=== PATIENT | female | born 1990 | race Caucasian/White ===

== ENCOUNTER 2016-05-02 13:03 | Emergency (ER) | payer OTHER ==
[~2016-05-02 13:03] MED LIST: ALBU1.25 IH; ALBU5SOL2 IH; BENZ100C PO; GUAI118L13 PO; HYDR115S2 PO; ONDA4TAB10 PO; SERT25TA PO; [UNRECOGNIZED DRUG - OTHER]
--- NOTE | 2016-05-02 13:47 | PHYS DOC ---
General Chief Complaint: ABDOMINAL PAIN Stated Complaint: ABDOM PAINS Time Seen by MD: 13:34 Source: patient Exam Limitations: no limitations Problems: History of Present Illness Initial Comments Pt is 26/F to ED c/o abdominal pain. Pt states for the past several weeks she's had generalized abdominal pain. No n /v/d, has had constipation in past but states she's having normal BMs. Pt states she saw her doctor for this recently diagnosed constipated recommended milk of magnesia. Pt was also seen recently at [place] for similar symptoms, on that day pt reports no labs/imaging she was diagnosed pancreatitis. Pt states she does not drink alcohol, no fever/chills/travel/bad food exposure. Sx described as moderate and achy/cramping, no exacerbating/relieving factors. LMP 3/7. Timing/Duration: other Severity: moderate Associated Symptoms: other Allergies: Coded Allergies: acetaminophen (Verified Allergy, Severe, Shortness of Air, 06/13/14) HIVES/RASH oxycodone (Verified Allergy, Severe, Shortness of Air, 06/13/14) HIVES/RASH Past Medical History Medical History: other (ectopic ) Surgical History: other (left salpingoophorectomy) LOAN ASSOCIATE History: ectopic Family History Significant Family History: no pertinent family hx Social History Smoker: cigarettes Alcohol: none Drugs: marijuana Review of Systems Constitutional: denies chills, denies fever, denies malaise Respiratory: denies cough, denies shortness of breath Cardiovascular: denies chest pain, denies palpitations Gastrointestinal: see HPI Genitourinary: denies dysuria, denies frequency, denies hematuria Musculoskeletal: denies back pain, denies joint swelling, denies neck pain Psychiatric/Neurological: denies headache, denies numbness, denies paresthesia Hematologic/Lymphatic: denies blood clots, denies easy bleeding, denies easy bruising Physical Exam General Appearance: WD/WN, no apparent distress Eyes: bilateral eye EOMI, bilateral eye PERRL, bilateral eye normal inspection Ear, Nose, Throat: hearing grossly normal, normal ENT inspection, normal pharynx Neck: non-tender, supple Respiratory: normal breath sounds, no respiratory distress Cardiovascular: normal peripheral pulses, regular rate, rhythm Gastrointestinal: soft (ND, BS normal, generalized TTP no r/g/mass) Rectal: deferred Back: no CVA tenderness, no vertebral tenderness Extremities: non-tender, normal inspection Neurologic/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 Supine and upright films of the abdomen were obtained. No prior plain film imaging of the abdomen is available. The lung bases are clear. There is no free air. The abdominal gas pattern is normal. Occasional calcifications are seen in the left pelvis compatible with phleboliths. IMPRESSION: No acute or significant finding seen in the abdomen on plain films DICTATED AND SIGNED BY: GAGAN HYATT MD DATE: 05/02/16 1425 CC: PCP,NO; VITOR PAINTER DO ~ Reassuring ED workup, pt feeling better after results back. Departure Time of Disposition: 14:47 Disposition: 01 HOME, SELF-CARE Diagnosis: abdominal pain NOS Condition: GOOD Patient Instructions: Abdominal Pain (Nonspecific) Additional Instructions: Diet/activity as tolerated. Rx: dicyclomine, simethicone Follow up with your doctor in 7-10 days for recheck and specialty referrals if indicated. Return to ED with new or changing symptoms. VITOR PAINTER DO May 02, 2016 13:47
[2016-05-02 13:59] LABS: BASO # 0.1 x10^3/uL (0.0-0.2); BASO % 1 % (0-3); EOS % 0 % (0-3); HEMATOCRIT 38.4 % (36.0-47.0); HEMOGLOBIN 12.4 g/dL (12.0-15.5); LYMPH # 2.1 x10^3/uL (1.0-4.8); LYMPH % 31 % (24-48); MEAN CORPUSCULAR HEMOGLOBIN 30 pg (25-35); MEAN CORPUSCULAR HGB CONC 32 g/dL (31-37); MEAN CORPUSCULAR VOLUME 93 fL (79-100); MONO # 0.5 x10^3/uL (0.0-1.1); MONO % 7 % (0-9); NEUT # 4.1 x10^3uL (1.8-7.7); NEUT % 60 % (31-73); PLATELET COUNT 191 x10^3/uL (140-400); RED BLOOD COUNT 4.15 x10^6/uL (3.50-5.40); RED CELL DISTRIBUTION WIDTH 13.2 % (11.5-14.5); WHITE BLOOD COUNT 6.9 x10^3/uL (4.0-11.0)
[2016-05-02 14:15] LABS: ALBUMIN 3.8 g/dL (3.4-5.0); CREATININE 0.8 mg/dL (0.6-1.0); GFR 87.4; TOTAL BILIRUBIN 0.5 mg/dL (0.2-1.0); TOTAL PROTEIN 7.6 g/dL (6.4-8.2)
[2016-05-02 14:20] VITALS: BP 126/72
--- NOTE | 2016-05-02 14:29 | RAD ---
Indication abdominal pain for one month. Supine and upright films of the abdomen were obtained. No prior plain film imaging of the abdomen is available. The lung bases are clear. There is no free air. The abdominal gas pattern is normal. Occasional calcifications are seen in the left pelvis compatible with phleboliths. IMPRESSION: No acute or significant finding seen in the abdomen on plain films
[2016-05-02] MEDS ORDERED: SIME80TA14 PO (14:46)
[2016-05-02] MEDS ORDERED: DICY20TA3 PO (14:46)
[2016-05-02 14:52] LABS: BILIRUBIN,URINE NEG (NEG); COLOR,URINE YELLOW
[2016-05-02 14:53] LABS: CLARITY,URINE CLEAR; GLUCOSE,URINE NEG (NEG); NITRITE,URINE NEG (NEG); UROBILINOGEN,URINE 2 mg/dL (0.2 mg/dL)
== END 2016-05-02 14:54 | disposition home or self-care (01) ==
LOC: ER 13:03
DX: R10.84 Generalized abdominal pain (principal); F17.210 Nicotine dependence, cigarettes, uncomplicated; F12.10 Cannabis abuse, uncomplicated; Z88.5 Allergy status to narcotic agent; Z88.8 Allergy status to other drugs, medicaments and biological substances; Z90.81 Acquired absence of spleen; Z90.721 Acquired absence of ovaries, unilateral
CPT/HCPCS: 36415; 74020; 80053; 81003; 81025; 83690; 85027; 99285-25

== ENCOUNTER 2016-06-06 09:09 | Emergency (ER) | payer OTHER ==
[~2016-06-06] VITALS: Ht 162.6 cm; Wt 75.7 kg
[~2016-06-06 09:09] MED LIST changes: +DICY20TA3 PO; +SIME80TA14 PO
[2016-06-06 09:15] VITALS: BP 130/82
--- NOTE | 2016-06-06 09:34 | ED.ADGEN ---
Past History Past Medical History: Depression, Diabetes Past Surgical History: No Surgical History Smoking: Cigarettes Alcohol Use: None Drug Use: Marijuana Adult General HPI HPI Patient is a 26-year-old woman, with a history of chlamydia and gonorrhea a year ago, bacterial vaginosis last month, and of urinary tract infections in the past, who presents the emergency department with a complaint of dysuria for the past 4 days, and concern for possible STI exposure. Patient states that she recently found out that her partner was not being monogamous, and she recently acquired a new partner. She states she is being monogamous currently, but does have concerns about possible exposure. She denies any abdominal pain, any nausea or vomiting, any fevers or chills, any flank pain or back pain. Patient states that she has burning with urination, and frequency and urgency. Occasionally noted yellow discharge in the vagina. She's been taking Azo at home for the past 3 days. Denies any other medications, or medical problems, any travel, surgery, or other complaints. Review of Systems Review of Systems Constitutional: Denies fever or chills [] Eyes: Denies change in visual acuity, redness, or eye pain [] HENT: Denies nasal congestion or sore throat [] Respiratory: Denies cough or shortness of breath [] Cardiovascular: No additional information not addressed in HPI [] GI: Denies abdominal pain, nausea, vomiting, bloody stools or diarrhea [] : Nice hematuria, complaining of dysuria. Musculoskeletal: Denies back pain or joint pain [] Integument: Denies rash or skin lesions [] Neurologic: Denies headache, focal weakness or sensory changes [] Endocrine: Denies polyuria or polydipsia [] Current Medications Current Medications Current Medications Medications (Trade) Dose Ordered Sig/Cesia Start Time Stop Time Status Last Admin Dose Admin Azithromycin (Zithromax) 1,000 mg 1X ONCE 06/06/16 10:00 06/06/16 10:01 DC 06/06/16 10:00 1,000 MG Ceftriaxone Sodium (Rocephin Im) 250 mg 1X ONCE 06/06/16 10:00 06/06/16 10:01 DC 06/06/16 10:00 250 MG Cephalexin HCl (Keflex) 500 mg 1X ONCE 06/06/16 11:00 06/06/16 11:01 Metronidazole (Flagyl) 500 mg 1X ONCE 06/06/16 11:00 06/06/16 11:01 Naproxen (Naprosyn) 500 mg 1X ONCE 06/06/16 11:00 06/06/16 11:01 Allergies Allergies Allergies Coded Allergies Type Severity Reaction Last Updated Verified acetaminophen Allergy Severe Shortness of Air 06/13/14 Yes oxycodone Allergy Severe Shortness of Air 06/13/14 Yes Physical Exam Physical Exam Constitutional: Well developed, well nourished, no acute distress, non-toxic appearance. [] HENT: Normocephalic, atraumatic, bilateral external ears normal, oropharynx moist, no oral exudates, nose normal. [] Eyes: PERRLA, EOMI, conjunctiva normal, no discharge. [] Neck: Normal range of motion, no tenderness, supple, no stridor. [] Cardiovascular:Heart rate regular rhythm, no murmur, S1, S2, no rubs or gallops. [] Lungs & Thorax: Bilateral breath sounds clear to auscultation, no wheezing, rhonchi, rales. No chest or crepitus or tenderness. [] Abdomen: Bowel sounds normal, soft, no tenderness, no rebound, rigidity, no guarding no masses, no pulsatile masses. [] Skin: Warm, dry, no erythema, no rash. [] Back: No tenderness, no CVA tenderness. [] Extremities: No tenderness, no cyanosis, no clubbing, ROM intact, no edema. [] Neurologic: Alert and oriented X 3, normal motor function, normal sensory function, no focal deficits noted. [] Psychologic: Affect normal, judgement normal, mood normal. [] Pelvic examination: External examination is unremarkable, no lesions or injuries identified, bimanual examination reveals a closed os, no CMT, no adnexal masses or tenderness identified, small amount of white discharge noted in vaginal vault. Speculum examination reveals a normal-appearing cervix, specimens taken without issue. Current Patient Data Lab Results Laboratory Tests Test 06/06/16 09:20 Urine Collection Type Unknown Urine Color Yellow Urine Clarity Clear Urine pH 6.0 Urine Specific Bradley 1.020 Urine Protein Neg (NEG-TRACE) Urine Glucose (UA) Negmg/dL (NEG) Urine Ketones (Stick) Negmg/dL (NEG) Urine Blood Neg (NEG) Urine Nitrite Neg (NEG) Urine Bilirubin Neg (NEG) Urine Urobilinogen Dipstick 0.2mg/dL (0.2 mg/dL) Urine Leukocyte Esterase Trace (NEG) Urine RBC 0/HPF (0-2) Urine WBC 11-20/HPF (0-4) Urine Squamous Epithelial Cells None/LPF Urine Bacteria Few/HPF (0-FEW) Urine Mucus Mod/LPF Microbiology 06/06/16 Wet Prep - Final, Complete EKG EKG Not indicated. [] Radiology/Procedures Radiology/Procedures Not indicated. [] Course & Med Decision Making Course & Med Decision Making Pertinent Labs and Imaging studies reviewed. (See chart for details) Patient's history and examination concerning for urinary tract infection, also concerning for possible STI exposure. After discussion patient requests that she be treated prophylactically, and specimens taken and sent for culture. Examination performed, patient with moderate amount of white discharge, wet prep was positive for bacterial vaginosis. Urinalysis revealed 11-20 WBCs, after discussion with patient, will treat for both UTI and bacterial vaginosis as well, along with Pyridium. Patient is given first dose all medications in the ED without issue. Instructed to follow-up with her primary care provider or with a healthcare Center for a full complement of STI testing, importance of this testing was discussed with patient in detail, also importance of safe sexual practices. Patient voiced understanding and agreement with these instructions, and also with medication instructions and return precautions. Patient discharged home in stable condition with plan as above. Final Impression Final Impression [] Problems: (1) Bacterial vaginosis (2) Urinary tract infection Qualifiers: Qualified Code: N30.00 - Acute cystitis without hematuria Dragon Disclaimer Dragon Disclaimer This electronic medical record was generated, in whole or in part, using a voice recognition dictation system. Departure Disposition: HOME, SELF-CARE Condition: IMPROVED EMMIE HOFF DO Jun 06, 2016 09:34
[2016-06-06 10:00] LABS: BACTERIA,URINE FEW /HPF (0-FEW); BILIRUBIN,URINE NEG (NEG); CLARITY,URINE CLEAR; COLOR,URINE YELLOW; GLUCOSE,URINE NEG (NEG); NITRITE,URINE NEG (NEG); RBC,URINE 0 /HPF (0-2); UROBILINOGEN,URINE 0.2 mg/dL (0.2 mg/dL)
[2016-06-06] MEDS ORDERED: AZITHROMYCIN 250 MG TABLET. PO ONE (10:00)
[2016-06-06] MEDS ORDERED: CEFTRIAXONE IM 250 MG VIAL. IM ONE (10:00)
[2016-06-06] MEDS ORDERED: CEPHALEXIN 500 MG CAPSULE PO ONE (11:00)
[2016-06-06] MEDS ORDERED: METRONIDAZOLE 500 MG TABLET PO ONE (11:00)
[2016-06-06] MEDS ORDERED: NAPROXEN 500 MG TABLET PO ONE (11:00)
[2016-06-08 18:07] LABS: CHLAMYDIA PROBE Positive (Negative)
== END 2016-06-06 10:40 | disposition home or self-care (01) ==
LOC: ER 09:09
DX: N76.0 Acute vaginitis (principal); N39.0 Urinary tract infection, site not specified; E11.9 Type 2 diabetes mellitus without complications; F17.210 Nicotine dependence, cigarettes, uncomplicated; F12.10 Cannabis abuse, uncomplicated; Z88.6 Allergy status to analgesic agent
CPT/HCPCS: 36415; 81001; 87491; 87591; 96372; 99284; J0456; J0696; Q0111

== ENCOUNTER 2016-07-01 13:08 | Emergency (ER) | payer OTHER ==
[~2016-07-01] VITALS: Ht 162.6 cm; Wt 75.9 kg
[2016-07-01 13:20] VITALS: BP 98/63
--- NOTE | 2016-07-01 13:26 | PHYS DOC ---
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 No neck stiffness/rash/n/v/sob/cp. No prearrival treatment, worse with swallowing better with rest. Requesting shot Timing/Duration: yesterday Severity: moderate Location: throat Prearrival Treatment: over the counter meds Modifying Factors: worse with coughing, improves with rest Associated Symptoms: malaise, poor fluid intake, poor solids intake, sore throat Allergies: Coded Allergies: acetaminophen (Verified Allergy, Severe, Shortness of Air, 06/13/14) HIVES/RASH oxycodone (Verified Allergy, Severe, Shortness of Air, 06/13/14) HIVES/RASH Past Medical History Medical History: asthma Surgical History: noncontributory, other Family History Significant Family History: no pertinent family hx Social History Smoker: cigarettes Alcohol: rarely Drugs: none Constitutional: denies chills, denies diaphoresis, denies fever, malaise Ears: denies dizziness, denies pain, denies tinnitus Nose: denies clots, denies congestion, denies epistaxis Throat: see HPI Respiratory: denies cough, denies shortness of breath Cardiovascular: denies chest pain, denies palpitations Gastrointestinal: denies nausea, denies vomiting Physical Exam General Appearance: WD/WN, no apparent distress Eyes: bilateral eye normal inspection, bilateral eye PERRL, bilateral eye EOMI Nose: normal inspection Mouth/Throat: other (pharynx beefy red with exudate, airway patent) Neck: supple, trachea midline, lymphadenopathy (R), lymphadenopathy (L) Cardiovascular/Respiratory: normal breath sounds, no respiratory distress 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 Departure Time of Disposition: 13:25 Disposition: 01 HOME, SELF-CARE Diagnosis: pharyngitis Condition: GOOD Patient Instructions: Viral and Bacterial Pharyngitis, [id number] Additional Instructions: Rest, no strenuous activity. Off work thru 07/03. OTC tylenol, ibuprofen, and analgesic throat sprays as needed. Aggressive hydration with gatorade, water. Follow up with a doctor in one week if not better. Return to ED with new or changing symptoms. VITOR PAINTER DO July 01, 2016 13:26
[2016-07-01] MEDS ORDERED: PENICILLIN G BENZATHINE LA 1,200,000 UNIT/2 ML DISP.SYRIN. IM ONE (13:45)
== END 2016-07-01 14:08 | disposition home or self-care (01) ==
LOC: ER 13:08
DX: J45.909 Unspecified asthma, uncomplicated (principal); F17.210 Nicotine dependence, cigarettes, uncomplicated; Z88.6 Allergy status to analgesic agent
CPT/HCPCS: 96372; 99283; J0561

== ENCOUNTER 2016-09-26 11:37 | Emergency (ER) | payer OTHER ==
[2016-09-26 11:40] VITALS: BP 108/70
--- NOTE | 2016-09-26 11:56 | PHYS DOC ---
Past History Past Medical History: Asthma Past Surgical History: Other Smoking: Cigarettes Alcohol Use: Rarely Drug Use: None Adult General Chief Complaint Chief Complaint: upper respiratory symptoms HPI HPI Patient is a 26 -year-old female who presents with symptoms that began yesterday morning including runny nose, postnasal drainage, scratchy throat, head congestion, head and ears feel full, cough. She has felt hot. She doesn't feel well. She has 4 kids and she doesn't want them to get it. She had strep throat a while back and we gave her a shot and she was better in 24 hours, she is hoping for a similar result. Patient does have a history of asthma and has been using her inhaler. Review of Systems Review of Systems Constitutional: She has felt hot HENT: As in history of present illness. She does not have a sore throat like she did with strep throat, it feels scratchy. Respiratory: She has had a cough but is not short of air Allergies Allergies Allergies Coded Allergies Type Severity Reaction Last Updated Verified acetaminophen Allergy Severe Shortness of Air 06/13/14 Yes oxycodone Allergy Severe Shortness of Air 06/13/14 Yes Physical Exam Physical Exam Constitutional: Well developed, well nourished, no acute distress, non-toxic appearance. Alert, mentating normally, afebrile, vital signs stable. HENT: Normocephalic, atraumatic, bilateral external ears normal, oropharynx moist, no oral exudates, tonsils not enlarged, without erythema or exudates. Eyes: PERRLA, EOMI, conjunctiva normal, no discharge. Neck: Normal range of motion, no stridor. Lungs & Thorax: Bilateral breath sounds clear to auscultation wheezes and with good air movement bilaterally. Skin: Warm, dry, no erythema, no rash. Extremities: No tenderness, no cyanosis, no clubbing, ROM intact, no edema. Neurologic: Alert and oriented X 3, normal motor function, normal sensory function, no focal deficits noted. EKG EKG [] Radiology/Procedures Radiology/Procedures [] Course & Med Decision Making Course & Med Decision Making Pertinent Labs and Imaging studies reviewed. (See chart for details) 26-year-old female presents with symptoms consistent with viral URI. Patient was educated on the difference between viral and bacterial infection. Spent some time discussing with the patient symptomatic relief and good handwashing and prevention of spread of viral URI. [] Dragon Disclaimer Dragon Disclaimer This chart was dictated in whole or in part using Voice Recognition software in a busy, high-work load, and often noisy Emergency Department environment. It may contain unintended and wholly unrecognized errors or omissions. Departure Departure: Impression: Primary Impression: Upper respiratory infection Disposition: 01 HOME, SELF-CARE Condition: STABLE Referrals: PCP,NO (PCP) Patient Instructions: Upper Respiratory Infection, Adult, [id number] Additional Instructions: As we discussed, your symptoms are caused by a virus, and antibiotics will not make them go away any faster. Cold/upper respiratory viral infections are very contagious. Good handwashing was soap and water. Use hand clinical studies specialist. For the symptoms of feeling feverish, hot and cold, also pain such as sore or scratchy throat and headache, use [id number] Tylenol (acetaminophen) or ibuprofen, also called Motrin or Advil. For the symptoms of feeling congested, head feeling heavy, not able to breathe through your nose, use an [id number] decongestant such as phenylephrine, brand-name Sudafed. For "runny symptoms" such as runny nose, postnasal drainage, use over-the- counter decongestant. Benadryl,(diphenhydramine) one every 6 hours works well but may be too sedating. If it is, try chlorpheniramine (often sold as allergy medicine) during the day, which may be less sedating, and take Benadryl at bedtime. You may buy multisymptom cold medicine that contains and antihistamine, a decongestant, and acetaminophen or ibuprofen. Or You may buy each of the above and just use the ones for the symptoms that you're having. Purchase Zinc lozenges, brand name Cold-Eez, and use one every 4-6 hours. These will not make your symptoms go away right away, but starting early after the onset of a cold they may shorten the duration of a cold and make the symptoms less severe. ERICK CINTRON MD Sep 26, 2016 11:56
== END 2016-09-26 12:00 | disposition home or self-care (01) ==
LOC: ER 11:37
DX: J06.9 Acute upper respiratory infection, unspecified (principal); J45.909 Unspecified asthma, uncomplicated; Z88.6 Allergy status to analgesic agent; Z88.5 Allergy status to narcotic agent
CPT/HCPCS: 99281

== ENCOUNTER 2016-10-16 21:02 | Emergency (ER) | payer OTHER ==
[~2016-10-16] VITALS: Ht 162.6 cm; Wt 74.4 kg
--- NOTE | 2016-10-16 21:04 | ED.ADGEN ---
Past History Past Medical History: Asthma, Other Past Surgical History: No Surgical History Smoking: Cigarettes Alcohol Use: None Drug Use: None Adult General Chief Complaint Chief Complaint ".. I got this discharge.. it gotten worse.. maybe it yeast...I did have gonorrhea or chlamydia sent about 6 months ago but I got it treated.. The health dept. can only see me on ..." HPI HPI Patient is a 26 year old female who presents with above hx and complaints increased vaginal discharge. Patient gives a history of 10 lifetime sex partners. No previous STDs except one started 6 months ago. Has been with same partner for the last 4 years. He also got treated for the chlamydia and gonorrhea with the last infection. Follow-up checks were negative for reinfection. Patient denies any history of immunosuppression. Denies IV drug use. Does smoke back or marijuana. Review of Systems Review of Systems Constitutional: Denies fever or chills [] Eyes: Denies change in visual acuity, redness, or eye pain [] HENT: Denies nasal congestion or sore throat [] Respiratory: Denies cough or shortness of breath [] Cardiovascular: No additional information not addressed in HPI [] GI: Denies abdominal pain, nausea, vomiting, bloody stools or diarrhea [] : Denies dysuria or hematuria []Complaints of vaginal discharge. Musculoskeletal: Denies back pain or joint pain [] Integument: Denies rash or skin lesions [] Neurologic: Denies headache, focal weakness or sensory changes [] Endocrine: Denies polyuria or polydipsia [] Family History Family History Diabetes Current Medications Current Medications Current Medications Medications (Trade) Dose Ordered Sig/Cesia Start Time Stop Time Status Last Admin Dose Admin Azithromycin (Zithromax) 1,000 mg 1X ONCE 10/16/16 22:30 10/16/16 22:31 DC 10/16/16 23:20 1,000 MG Ceftriaxone Sodium (Rocephin Im) 1 gm 1X ONCE 10/16/16 22:30 10/16/16 22:31 DC 10/16/16 23:20 1 GM Metronidazole (Flagyl) 2,000 mg 1X ONCE 10/16/16 22:30 10/16/16 22:31 DC 10/16/16 23:20 2,000 MG Ondansetron HCl (Zofran Odt) 8 mg 1X ONCE 10/16/16 22:30 10/16/16 22:31 DC 10/16/16 23:20 8 MG Allergies Allergies Allergies Coded Allergies Type Severity Reaction Last Updated Verified acetaminophen Allergy Severe Shortness of Air 06/13/14 Yes oxycodone Allergy Severe Shortness of Air 06/13/14 Yes Physical Exam Physical Exam Constitutional: Well developed, well nourished, no acute distress, non-toxic appearance. [] HENT: Normocephalic, atraumatic, bilateral external ears normal, oropharynx moist, no oral exudates, nose normal. [] Eyes: PERRLA, EOMI, conjunctiva normal, no discharge. [] Neck: Normal range of motion, no tenderness, supple, no stridor. [] Cardiovascular:Heart rate regular rhythm, no murmur [] Lungs & Thorax: Bilateral breath sounds clear to auscultation [] Abdomen: Bowel sounds normal, soft, no tenderness, no masses, no pulsatile masses. Except except some mild suprapubic tenderness. Very mild cervical motion tenderness. No adnexal tenderness. Does have a malodorous creamy discharge and findings of cervicitis. Rectal exam heart stool in vault nontender Skin: Warm, dry, no erythema, no rash. Tattoos. Niqua tattoo on right calf Back: No tenderness, no CVA tenderness. [] Extremities: No tenderness, no cyanosis, no clubbing, ROM intact, no edema. [] Neurologic: Alert and oriented X 3, normal motor function, normal sensory function, no focal deficits noted. [] Psychologic: Affect normal, judgement normal, mood normal. [] Current Patient Data Vital Signs Vital Signs Date Time Temp Pulse Resp B/P (MAP) Pulse Ox O2 Delivery O2 Flow Rate FiO2 10/16/16 23:35 74 16 122/63 (82) 99 Room Air 10/16/16 21:02 98.2 Lab Results Laboratory Tests Test 10/16/16 21:15 10/16/16 21:23 10/16/16 22:04 Urine Collection Type Unknown Urine Color Yellow Urine Clarity Hazy Urine pH 6.0 Urine Specific [place] 1.025 Urine Protein Neg (NEG-TRACE) Urine Glucose (UA) Neg mg/dL (NEG) Urine Ketones (Stick) Trace mg/dL (NEG) Urine Blood Trace (NEG) Urine Nitrite Neg (NEG) Urine Bilirubin Neg (NEG) Urine Urobilinogen Dipstick 1 mg/dL (0.2 mg/dL) Urine Leukocyte Esterase Trace (NEG) Urine RBC 3-5 /HPF (0-2) Urine WBC 5-10 /HPF (0-4) Urine Squamous Epithelial Cells Many /LPF Urine Bacteria Few /HPF (0-FEW) Urine Mucus Mod /LPF Urine Opiates Screen Neg (NEG) Urine Methadone Screen Neg (NEG) Urine Barbiturates Neg (NEG) Urine Phencyclidine Screen Neg (NEG) Urine Amphetamine/Methamphetamine Neg (NEG) Urine Benzodiazepines Screen Neg (NEG) Urine Cocaine Screen Neg (NEG) Urine Cannabinoids Screen Pos (NEG) Urine Ethyl Alcohol Neg (NEG) White Blood Count 6.3 x10^3/uL (4.0-11.0) Red Blood Count 3.80 x10^6/uL (3.50-5.40) Hemoglobin 11.6 g/dL (12.0-15.5) L Hematocrit 34.6 % (36.0-47.0) L Mean Corpuscular Volume 91 fL (79-100) Mean Corpuscular Hemoglobin 31 pg (25-35) Mean Corpuscular Hemoglobin Concent 34 g/dL (31-37) Red Cell Distribution Width 12.8 % (11.5-14.5) Platelet Count 206 x10^3/uL (140-400) Neutrophils (%) (Auto) 48 % (31-73) Lymphocytes (%) (Auto) 41 % (24-48) Monocytes (%) (Auto) 8 % (0-9) Eosinophils (%) (Auto) 2 % (0-3) Basophils (%) (Auto) 2 % (0-3) Neutrophils # (Auto) 3.0 x10^3uL (1.8-7.7) Lymphocytes # (Auto) 2.6 x10^3/uL (1.0-4.8) Monocytes # (Auto) 0.5 x10^3/uL (0.0-1.1) Eosinophils # (Auto) 0.1 x10^3/uL (0.0-0.7) Basophils # (Auto) 0.1 x10^3/uL (0.0-0.2) Prothrombin Time 10.5 SEC (9.4-11.4) Prothrombin Time INR 1.0 (0.9-1.1) PTT 22 SEC (23-33) L Sodium Level 141 mmol/L (136-145) Potassium Level 4.6 mmol/L (3.5-5.1) Chloride Level 108 mmol/L (98-107) H Carbon Dioxide Level 26 mmol/L (21-32) Anion Gap 7 (6-14) Blood Urea Nitrogen 13 mg/dL (7-20) Creatinine 0.8 mg/dL (0.6-1.0) Estimated GFR (Cockcroft-Gault) 87.4 BUN/Creatinine Ratio 16 (6-20) Glucose Level 90 mg/dL (70-99) Calcium Level 8.8 mg/dL (8.5-10.1) Total Bilirubin 0.2 mg/dL (0.2-1.0) Aspartate Amino Transferase (AST) 13 U/L (15-37) L Alanine Aminotransferase (ALT) 18 U/L (14-59) Alkaline Phosphatase 42 U/L (46-116) L Total Protein 6.6 g/dL (6.4-8.2) Albumin 3.5 g/dL (3.4-5.0) Albumin/Globulin Ratio 1.1 (1.0-1.7) Microbiology 10/16/16 Wet Prep - Final, Complete EKG EKG [] Radiology/Procedures Radiology/Procedures [] Course & Med Decision Making Course & Med Decision Making Pertinent Labs and Imaging studies reviewed. (See chart for details) Take Keflex 500 mg tid, 7 days. Must follow up cultures taken here. Follow up health Dept. or primary. Stop smoking. Safe sex. Partner must be treated. [] Final Impression Final Impression 1. Vaginal- Discharge 2. Cervicitis 3. UTI Problems: Dragon Disclaimer Dragon Disclaimer This electronic medical record was generated, in whole or in part, using a voice recognition dictation system. JULIO FRAZIER MD Oct 16, 2016 21:04
[2016-10-16 21:52] LABS: BASO # 0.1 x10^3/uL (0.0-0.2); BASO % 2 % (0-3); EOS # 0.1 x10^3/uL (0.0-0.7); EOS % 2 % (0-3); HEMATOCRIT 34.6 % (36.0-47.0); HEMOGLOBIN 11.6 g/dL (12.0-15.5); LYMPH # 2.6 x10^3/uL (1.0-4.8); LYMPH % 41 % (24-48); MEAN CORPUSCULAR HEMOGLOBIN 31 pg (25-35); MEAN CORPUSCULAR HGB CONC 34 g/dL (31-37); MEAN CORPUSCULAR VOLUME 91 fL (79-100); MONO # 0.5 x10^3/uL (0.0-1.1); MONO % 8 % (0-9); NEUT % 48 % (31-73); PLATELET COUNT 206 x10^3/uL (140-400); RED CELL DISTRIBUTION WIDTH 12.8 % (11.5-14.5); WHITE BLOOD COUNT 6.3 x10^3/uL (4.0-11.0)
[2016-10-16] MEDS ORDERED: CEPH-264 PO (22:17)
[2016-10-16] MEDS ORDERED: FLUC200T PO (22:17)
[2016-10-16 22:21] LABS: BARBITURATES NEG (NEG); BENZODIAZEPINES NEG (NEG); CANNABINOIDS POS (NEG); COCAINE NEG (NEG); METHADONE NEG (NEG); OPIATES NEG (NEG); PHENCYCLIDINE NEG (NEG)
[2016-10-16 22:22] LABS: AMPHETAMINE/METHAMPHETAMINE NEG (NEG)
[2016-10-16] MEDS ORDERED: metroNIDAZOLE 500 MG TABLET PO ONE (22:30)
[2016-10-16] MEDS ORDERED: ONDANSETRON ODT 4 MG TAB.RAPDIS PO ONE (22:30)
[2016-10-16] MEDS ORDERED: cefTRIAXone IM 1 GM VIAL IM ONE (22:30)
[2016-10-16] MEDS ORDERED: AZITHROMYCIN 250 MG TABLET. PO ONE (22:30)
[2016-10-16 22:32] LABS: BACTERIA,URINE FEW /HPF (0-FEW); BILIRUBIN,URINE NEG (NEG); CLARITY,URINE HAZY; COLOR,URINE YELLOW; GLUCOSE,URINE NEG (NEG); NITRITE,URINE NEG (NEG); SQUAMOUS EPITHELIAL CELL,UR MANY /LPF; UROBILINOGEN,URINE 1 mg/dL (0.2 mg/dL)
[2016-10-16 22:53] LABS: ALBUMIN 3.5 g/dL (3.4-5.0); ALBUMIN/GLOBULIN RATIO 1.1 (1.0-1.7); CALCIUM 8.8 mg/dL (8.5-10.1); CREATININE 0.8 mg/dL (0.6-1.0); GFR 87.4; POTASSIUM 4.6 mmol/L (3.5-5.1); TOTAL BILIRUBIN 0.2 mg/dL (0.2-1.0); TOTAL PROTEIN 6.6 g/dL (6.4-8.2)
[2016-10-16] MEDS ORDERED: METR70GE14 VG (23:08)
[2016-10-16 23:35] VITALS: BP 122/63
== END 2016-10-16 23:40 | disposition home or self-care (01) ==
LOC: ER 21:02
DX: N72 Inflammatory disease of cervix uteri (principal); N39.0 Urinary tract infection, site not specified; J45.909 Unspecified asthma, uncomplicated; F17.210 Nicotine dependence, cigarettes, uncomplicated; Z88.5 Allergy status to narcotic agent; Z88.6 Allergy status to analgesic agent
CPT/HCPCS: 80053; 80307; 81001; 85025; 85610; 85730; 86701; 86702; 86703; 87086; 87535; 96372; 99284; J0456; J0696; Q0111; Q0162; 36415; 80074; 86592; 86593; G0479

== ENCOUNTER 2016-11-15 18:56 | Emergency (ER) | payer OTHER ==
[~2016-11-15] VITALS: Ht 162.6 cm; Wt 75.9 kg
[~2016-11-15 18:56] MED LIST changes: +CEPH-264 PO; +FLUC200T PO; +METR70GE14 VG
[2016-11-15 19:04] VITALS: BP 117/69
[2016-11-15] MEDS ORDERED: IBUP400T18 PO (20:12)
--- NOTE | 2016-11-15 20:13 | PHYS DOC ---
Past History Past Medical History: No Pertinent History, Asthma, Other Past Surgical History: Tubal ligation, Other Smoking: Cigarettes Alcohol Use: None Drug Use: Marijuana Adult General Chief Complaint Chief Complaint: ABDOMINAL PAIN HPI HPI 26 yo F with pelvic cramping for about 2 days . She also has had one big blood clot that is passed as well. She denies being and reports being on contraception currently. She denies fevers or chills or nausea or vomiting. She denies chest pain or shortness of breath. She denies any recent exposure to STDs , changes in vaginal discharge, or foul-smelling discharge. Review of systems is negative for fevers chills nausea vomiting headache confusion cyanosis lethargy. All other review of systems is negative unless otherwise noted in history of present illness. ED course: 26-year-old female presenting with pelvic cramping with passage of 1 blood clot./Vaginal bleeding. Patient is afebrile with a normal heart rate. Pertinent physical exam findings, the patient's abdomen is soft nontender and without rebound tenderness. Negative McBurney's point. Negative Toussaint sign. Initially I had ordered basic blood work, however after talking to the patient she does not desire to have her blood tested which I am okay with. test negative. Urinalysis shows no sign of infection. Patient declines vaginal exam and does not believe this is related to STD. The patient was then discharged home in stable condition to follow up with their primary care physician over the next 2-3 days. They were to return if their symptoms worsened or if they were concerned for any reason. [id number] discharge instructions and return precautions were given. Patient's questions were answered to their satisfaction. Patient is comfortable plan. Review of Systems Review of Systems SEE ABOVE. Allergies Allergies Allergies Coded Allergies Type Severity Reaction Last Updated Verified acetaminophen Allergy Severe Shortness of Air 06/13/14 Yes oxycodone Allergy Severe Shortness of Air 06/13/14 Yes Physical Exam Physical Exam SEE ABOVE Constitutional: Well developed, well nourished, no acute distress, non-toxic appearance. HENT: Normocephalic, atraumatic, bilateral external ears normal, oropharynx moist, no oral exudates, nose normal. [] Eyes: PERRLA, EOMI, conjunctiva normal, no discharge. [] Neck: Normal range of motion, no tenderness, supple, no stridor. [] Cardiovascular:Heart rate regular rhythm, no murmur [] Lungs & Thorax: Bilateral breath sounds clear to auscultation Abdomen: Bowel sounds normal, soft, no tenderness, no masses, no pulsatile masses. [] Skin: Warm, dry, no erythema, no rash. Back: No tenderness, no CVA tenderness. [] Extremities: No tenderness, no cyanosis, no clubbing, ROM intact, no edema. Neurologic: Alert and oriented X 3, normal motor function, normal sensory function, no focal deficits noted. [] Psychologic: Affect normal, judgement normal, mood normal. Current Patient Data Vital Signs Vital Signs Date Time Temp Pulse Resp B/P (MAP) Pulse Ox O2 Delivery O2 Flow Rate FiO2 11/15/16 19:04 98.3 78 16 98 Room Air Lab Results Laboratory Tests Test 11/15/16 20:10 POC Urine HCG, Qualitative hcg negative (Negative) EKG EKG [] Radiology/Procedures Radiology/Procedures [] Course & Med Decision Making Course & Med Decision Making Pertinent Labs and Imaging studies reviewed. (See chart for details) [] Dragon Disclaimer Dragon Disclaimer This chart was dictated in whole or in part using Voice Recognition software in a busy, high-work load, and often noisy Emergency Department environment. It may contain unintended and wholly unrecognized errors or omissions. Departure Departure: Impression: Primary Impression: Vaginal bleeding Additional Impression: Pelvic cramping Disposition: 01 HOME, SELF-CARE Condition: STABLE Referrals: PCPZACKERY (PCP) Patient Instructions: Abnormal Uterine Bleeding Additional Instructions: Thank you for allowing us to participate in your care today. Followup with your primary care physician in 3 days if your symptoms do not improve. Call your Primary Doctor tomorrow and inform them of your visit today. If you do not have a primary care provider you can ask for a list of our primary care providers. Return to the emergency department you have any new or concerning findings. This should be evaluated by the primary care physician and any necessary consulting services for continued management within a few days after discharge. Return to emergency room if you have any new or concerning symptoms including but not limited to fever, chills, nausea, vomiting, intractable pain, any new rashes, chest pain, shortness of air, uncontrolled bleeding, difficulty breathing, and/or vision loss. Scripts Ibuprofen (IBUPROFEN) 400 Mg Tablet 1 TAB PO PRN Q8HRS Y for PAIN, #20 TAB Prov: ROLAND MCFADDEN MD 11/15/16 Problem Qualifiers ROLAND MCFADDEN MD Nov 15, 2016 20:13
[2016-11-15] MEDS ORDERED: IBUPROFEN 400 MG TABLET. PO ONE (20:20)
[2016-11-15 20:35] LABS: BILIRUBIN,URINE NEG (NEG); CLARITY,URINE CLEAR; COLOR,URINE YELLOW
[2016-11-15 20:36] LABS: GLUCOSE,URINE NEG (NEG); NITRITE,URINE NEG (NEG); UROBILINOGEN,URINE 0.2 mg/dL (0.2 mg/dL)
== END 2016-11-15 20:25 | disposition home or self-care (01) ==
LOC: ER 18:56
DX: N93.9 Abnormal uterine and vaginal bleeding, unspecified (principal); J45.909 Unspecified asthma, uncomplicated; F17.210 Nicotine dependence, cigarettes, uncomplicated; Z88.5 Allergy status to narcotic agent; Z88.6 Allergy status to analgesic agent
CPT/HCPCS: 81003; 81025; 99283

== ENCOUNTER 2017-03-02 08:02 | Emergency (ER) | payer OTHER ==
[~2017-03-02] VITALS: Ht 162.6 cm; Wt 75.9 kg
[~2017-03-02 08:02] MED LIST changes: +IBUP400T18 PO
[2017-03-02] MEDS ORDERED: DOXY100C14 PO (08:30)
--- NOTE | 2017-03-02 08:30 | PHYS DOC ---
Past History Past Medical History: No Pertinent History, Asthma, Other Past Surgical History: Tubal ligation, Other Smoking: Cigarettes Alcohol Use: None Drug Use: Marijuana Adult General Chief Complaint Chief Complaint: SEXUALLY TRANSMITTED DISEASE HPI HPI Is a pleasant 26-year-old female who presents to the ER today with vaginal discharge. She is been seeing a new partner recently had exposure to an STD and called to tell her this. She's had a yellowish discharge with some burning sensation in her vagina for the last couple days. She is also had a prior history of STDs in the past. She denies any abdominal pain, back pain, fevers, chills, rash, joint swelling or other systemic complaints. Patient does not believe she is denies any abuse of her pelvis denies any rectal pain. Review of Systems Review of Systems Constitutional: Denies fever or chills [] Eyes: Denies change in visual acuity, redness, or eye pain [] HENT: Denies nasal congestion or sore throat [] Respiratory: Denies cough or shortness of breath [] Cardiovascular: No additional information not addressed in HPI [] GI: Denies abdominal pain, nausea, vomiting, bloody stools or diarrhea [] : Denies dysuria or hematuria her only complaint is vaginal discharge[] Musculoskeletal: Denies back pain or joint pain [] Integument: Denies rash or skin lesions [] Neurologic: Denies headache, focal weakness or sensory changes [] Endocrine: Denies polyuria or polydipsia [] All other systems were reviewed and found to be within normal limits, except as documented in this note. Allergies Allergies Allergies Coded Allergies Type Severity Reaction Last Updated Verified acetaminophen Allergy Severe Shortness of Air 06/13/14 Yes oxycodone Allergy Severe Shortness of Air 06/13/14 Yes Physical Exam Physical Exam Vital signs recorded on the chart at this time within normal limits Constitutional: Well developed, well nourished, no acute distress, non-toxic appearance. [] Cardiovascular:Heart rate regular rhythm, no murmur [] Lungs & Thorax: Bilateral breath sounds clear to auscultation [] Abdomen: Bowel sounds normal, soft, no tenderness, no masses, no pulsatile masses. exam:[] Metal Sprayer was present at all times patient has a yellowish malodorous discharge that looks like purulent discharge from the cervical os. She had no CMT no adnexal fullness or adnexal tenderness no lesions external vagina was normal in appearance with no evidence of any kind of vesicles or injury. Skin: Warm, dry, no erythema, no rash. [] Back:no CVA tenderness. [] Neurologic: Alert and oriented X 3, normal motor function, normal sensory function, no focal deficits noted. [] Psychologic: Affect normal, judgement normal, mood normal. [] EKG EKG [] Radiology/Procedures Radiology/Procedures [] Course & Med Decision Making Course & Med Decision Making Pertinent Labs and Imaging studies reviewed. (See chart for details) []She presents with STD exposure with a vaginal discharge as yellow in nature. Collected cultures on her treat her empirically for GC by giving her IM Rocephin azithromycin and a dose of doxycycline, home with. Julio Disclaimer Julio Disclaimer This electronic medical record was generated, in whole or in part, using a voice recognition dictation system. Departure Departure: Impression: Primary Impression: Vaginal discharge Disposition: HOME, SELF-CARE Condition: STABLE Referrals: PCP,NO (PCP) Patient Instructions: Chlamydia Test, Chlamydia, Female, Gonorrhea Culture, Gonorrhea, Females and Males Additional Instructions: discharge: I've spoken with the patient and/or caregivers. I've explained the patient's condition, diagnosis and treatment plan based on information available to me at this time. I've answered the patient's and/or caregivers questions and addressed any concerns. The patient and/or caregivers have a good understanding the patient's diagnosis, condition and treatment plan as can be expected at this point. Vital signs have been stabilized. The patient's condition is stable for discharge from the emergency department. The patient will pursue further outpatient evaluation with her primary care provider or other designated consulting physician as outlined in the discharge instructions. Patient and/or caregivers are agreeable to this plan of care and follow-up instructions have been explained in detail. The patient and/or caregivers have received these instructions in written format and expressed understanding of these discharge instructions. The patient and her caregivers are aware that if any significant change in condition or worsening of symptoms should prompt him to immediately return to this of the closest emergency department. If an emergent department is not readily available I would encourage him to call 911. Scripts Doxycycline Monohydrate (DOXYCYCLINE MONOHYDRATE) 100 Mg Capsule 1 CAP PO BID, #20 CAP Prov: JULIO C CASTILLO MD 03/02/17 JULIO C CASTILLO MD Mar 02, 2017 08:30
[2017-03-02 08:50] VITALS: BP 124/61
[2017-03-02] MEDS ORDERED: cefTRIAXone IM 250 MG VIAL IM ONE (08:50)
[2017-03-02] MEDS ORDERED: AZITHROMYCIN 250 MG TABLET. PO ONE (09:50)
== END 2017-03-02 08:57 | disposition home or self-care (01) ==
LOC: ER 08:02
DX: N89.8 Other specified noninflammatory disorders of vagina (principal); J45.909 Unspecified asthma, uncomplicated; Z98.51 Tubal ligation status; F17.210 Nicotine dependence, cigarettes, uncomplicated; F12.10 Cannabis abuse, uncomplicated; Z88.6 Allergy status to analgesic agent; Z88.5 Allergy status to narcotic agent
CPT/HCPCS: 81025; 99283

== ENCOUNTER 2017-10-23 15:24 | Emergency (ER) | payer OTHER ==
[~2017-10-23] VITALS: Ht 162.6 cm; Wt 75.9 kg
[~2017-10-23 15:24] MED LIST changes: +DOXY100C14 PO
[2017-10-23 15:25] VITALS: BP 95/52
--- NOTE | 2017-10-23 16:36 | PHYS DOC ---
Past History Past Medical History: No Pertinent History Past Surgical History: Other Smoking: Cigarettes Alcohol Use: None Drug Use: None Adult General Chief Complaint Chief Complaint: FINGER INJURY HPI HPI 27 showed female presents with left index finger pain. Patient was just poking her sister with her finger when it bent backwards dorsally. Afterward she had pain. Today it is very swollen and the pain is worse so the patient was concern for fracture. She has fractured a different finger in the past. She denies any other injuries. She is approximate 7 weeks . She has no related complaints. Review of Systems Review of Systems Constitutional: Denies fever or chills [] Eyes: Denies change in visual acuity, redness, or eye pain [] HENT: Denies nasal congestion or sore throat [] Respiratory: Denies cough or shortness of breath [] Cardiovascular: No additional information not addressed in HPI [] GI: Denies abdominal pain, nausea, vomiting, bloody stools or diarrhea [] : Denies dysuria or hematuria [] Musculoskeletal: Left index finger pain[] Integument: Denies rash or skin lesions [] Neurologic: Denies headache, focal weakness or sensory changes [] Endocrine: Denies polyuria or polydipsia [] All other systems were reviewed and found to be within normal limits, except as documented in this note. Allergies Allergies Allergies Coded Allergies Type Severity Reaction Last Updated Verified acetaminophen Allergy Severe Shortness of Air 06/13/14 Yes oxycodone Allergy Severe Shortness of Air 06/13/14 Yes Physical Exam Physical Exam Constitutional: Well developed, well nourished, no acute distress, non-toxic appearance. [] HENT: Normocephalic, atraumatic, bilateral external ears normal, oropharynx moist, no oral exudates, nose normal. [] Eyes: PERRLA, EOMI, conjunctiva normal, no discharge. [] Neck: Normal range of motion, no tenderness, supple, no stridor. [] Cardiovascular:Heart rate regular rhythm, no murmur [] Lungs & Thorax: Bilateral breath sounds clear to auscultation [] Abdomen: Bowel sounds normal, soft, no tenderness, no masses, no pulsatile masses. [] Skin: Warm, dry, no erythema, no rash. [] Back: No tenderness, no CVA tenderness. [] Extremities: Swelling of the left index finger at the MCP. Tenderness with palpation.[] Neurologic: Alert and oriented X 3, normal motor function, normal sensory function, no focal deficits noted. [] Psychologic: Affect normal, judgement normal, mood normal. [] Current Patient Data Vital Signs Vital Signs Date Time Temp Pulse Resp B/P (MAP) Pulse Ox O2 Delivery O2 Flow Rate FiO2 10/23/17 15:25 98.1 83 16 97 Room Air EKG EKG [] Radiology/Procedures Radiology/Procedures [] Impressions: Preliminary read: The patient's x-ray is negative for fracture or dislocation. Course & Med Decision Making Course & Med Decision Making Pertinent Labs and Imaging studies reviewed. (See chart for details) Patient's finger is not fractured and dislocated. She just has a sprain of the left index finger. We will nickie tape it for comfort she is stable for discharge at this time. [] Dragon Disclaimer Dragon Disclaimer This electronic medical record was generated, in whole or in part, using a voice recognition dictation system. Departure Departure: Referrals: PCP,NO (PCP) NAMAN GOODEN DO Oct 23, 2017 16:36
--- NOTE | 2017-10-23 17:09 | RAD ---
Left hand, 3 views, 10/23/2017: HISTORY: Pain, injury No fracture or dislocation is identified. IMPRESSION: No significant left hand abnormality is detected. Electronically signed by: Barrington Griffin MD (10/23/2017 5:06 PM) [facility]
== END 2017-10-23 16:53 | disposition home or self-care (01) ==
LOC: ER 15:24
DX: O9A.211 Injury, poisoning and certain other consequences of external causes complicating pregnancy, first trimester (principal); S63.611A Unspecified sprain of left index finger, initial encounter; O99.331 Smoking (tobacco) complicating pregnancy, first trimester; Z3A.01 Less than 8 weeks gestation of pregnancy; Z88.6 Allergy status to analgesic agent; Z88.5 Allergy status to narcotic agent; X50.9XXA Other and unspecified overexertion or strenuous movements or postures, initial encounter; Y93.89 Activity, other specified; Y92.89 Other specified places as the place of occurrence of the external cause; Y99.8 Other external cause status
CPT/HCPCS: 73130; 99284

== ENCOUNTER 2017-12-24 14:10 | Emergency (ER) | payer OTHER ==
[~2017-12-24] VITALS: Ht 162.6 cm; Wt 74.4 kg
[2017-12-24 14:10] VITALS: BP 122/63
--- NOTE | 2017-12-24 15:06 | PHYS DOC ---
Past History Past Medical History: No Pertinent History Past Surgical History: Other Smoking: Cigarettes Alcohol Use: None Drug Use: None Adult General Chief Complaint Chief Complaint: ABDOMINAL PAIN [facility] HPI Patient is a 27-year-old female who presents with complaint of left knee pain and lower abdominal/pelvic pain/cramping. Patient states that the pelvic pain has been present for the last several weeks and states that she is between 16 and 17 weeks . She denies any vaginal discharge or bleeding. She states the pain is worsened if she stretches and states that it is fairly mild. She denies any urinary discomfort. Patient also complains of her left knee that has been chronically painful since at least the age of 16. She states that she was told at that time that she had arthritis in her knee. Patient was seen [place] ER today and states that she is frustrated because she didn't feel like her complaint was taken seriously, stating that the doctor didn't even look at her knee. She indicates that they did check a urine on her and told her that she did not have a urinary tract infection. Review of Systems Review of Systems Constitutional: Denies fever or chills [] Respiratory: Denies cough or shortness of breath [] Cardiovascular: No additional information not addressed in HPI [] GI: Complains of lower abdominal/pelvic cramping. Patient does admit to periodic nausea but has had no vomiting or diarrhea.[] : Denies dysuria or hematuria [] Musculoskeletal: Complains of left knee pain [] All other systems were reviewed and found to be within normal limits, except as documented in this note. Allergies Allergies Allergies Coded Allergies Type Severity Reaction Last Updated Verified acetaminophen Allergy Severe Shortness of Air 06/13/14 Yes oxycodone Allergy Severe Shortness of Air 06/13/14 Yes Physical Exam Physical Exam Constitutional: Well developed, well nourished, no acute distress, non-toxic appearance. [] Neck: Normal range of motion, no tenderness, supple, no stridor. [] Cardiovascular:Heart rate regular rhythm, no murmur [] Lungs & Thorax: Bilateral breath sounds clear to auscultation [] Abdomen: Bowel sounds normal, soft, no tenderness. [] Skin: Warm, dry, no erythema, no rash. [] Extremities: Ligamentous exam for both knees is unremarkable. Ramos's test of left knee is positive suggestive of patellofemoral disorder. [] EKG EKG [] Radiology/Procedures Radiology/Procedures [] Course & Med Decision Making Course & Med Decision Making Pertinent Labs and Imaging studies reviewed. (See chart for details) [] Dragon Disclaimer Dragon Disclaimer This electronic medical record was generated, in whole or in part, using a voice recognition dictation system. 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 DO Dec 24, 2017 15:06
== END 2017-12-24 15:25 | disposition home or self-care (01) ==
LOC: ER 14:10
DX: O26.892 Other specified pregnancy related conditions, second trimester (principal); R10.2 Pelvic and perineal pain; M22.42 Chondromalacia patellae, left knee; O99.332 Smoking (tobacco) complicating pregnancy, second trimester; Z3A.16 16 weeks gestation of pregnancy; Z88.5 Allergy status to narcotic agent; Z88.6 Allergy status to analgesic agent
CPT/HCPCS: 99281

== ENCOUNTER 2018-01-15 08:15 | Emergency (ER) | payer OTHER ==
[~2018-01-15] VITALS: Ht 162.6 cm; Wt 79.0 kg
[2018-01-15 08:24] VITALS: BP 100/62
[2018-01-15] MEDS ORDERED: ACETAMINOPHEN 500 MG TABLET PO ONE (08:45)
[2018-01-15] MEDS ORDERED: HYDR10SO4 PO (08:52)
[2018-01-15] MEDS ORDERED: AMOX250S4 PO (08:52)
--- NOTE | 2018-01-15 08:52 | PHYS DOC ---
Past History Past Medical History: No Pertinent History Past Surgical History: Other Smoking: Cigarettes Alcohol Use: None Drug Use: None Adult General Chief Complaint Chief Complaint: SORE THROAT HPI HPI Patient is a 27 year old female at 19 weeks of gestation who presents with complaining of sore throat. Patient complaining of sore throat since yesterday with nasal congestion and cough without fever and chills. Patient states she is not able to swallow because of sore throat. Patient denies vaginal bleeding or abdominal pain and contraction. Patient states she did not smoke cigarettes for the last 3 days. Review of Systems Review of Systems Constitutional: Denies fever or chills [] Eyes: Denies change in visual acuity, redness, or eye pain [] HENT: Reports nasal congestion or sore throat Respiratory: Reports cough, denies shortness of breath [] Cardiovascular: No additional information not addressed in HPI [] GI: Denies abdominal pain, nausea, vomiting, bloody stools or diarrhea [] : Denies dysuria or hematuria [] Musculoskeletal: Denies back pain or joint pain [] Integument: Denies rash or skin lesions [] Neurologic: Denies headache, focal weakness or sensory changes [] Endocrine: Denies polyuria or polydipsia [] All other systems were reviewed and found to be within normal limits, except as documented in this note. Current Medications Current Medications Current Medications Medications (Trade) Dose Ordered Sig/Cesia Start Time Stop Time Status Last Admin Dose Admin Acetaminophen (Tylenol) 1,000 mg 1X ONCE 01/15/18 08:45 01/15/18 08:46 DC 01/15/18 08:37 1,000 MG Allergies Allergies Allergies Coded Allergies Type Severity Reaction Last Updated Verified oxycodone Allergy Severe CENTRAL NERVOUS SYSTEM 01/15/18 Yes Physical Exam Physical Exam Constitutional: Well developed, well nourished, mild distress, non-toxic appearance. [] HENT: Normocephalic, atraumatic, bilateral external ears normal, oropharynx moist, no tonsillar enlargement enlargement, uvula mild edema and erythema, no oral exudates, nasal congestion Eyes: PERRLA, EOMI, conjunctiva normal, no discharge. [] Neck: Normal range of motion, no tenderness, supple, no stridor. [] Cardiovascular:Heart rate regular rhythm, no murmur [] Lungs & Thorax: Bilateral breath sounds clear to auscultation [] Abdomen: Gravid abdomen, no tenderness Skin: Warm, dry, no erythema, no rash. [] Back: No tenderness, no CVA tenderness. [] Extremities: No tenderness, no cyanosis, no clubbing, ROM intact, no edema. [] Neurologic: Alert and oriented X 3, normal motor function, normal sensory function, no focal deficits noted. [] Psychologic: Affect anxious, judgement normal, mood normal. [] Current Patient Data Vital Signs Vital Signs Date Time Temp Pulse Resp B/P (MAP) Pulse Ox O2 Delivery O2 Flow Rate FiO2 01/15/18 08:24 97.9 80 20 98 Room Air EKG EKG [] Radiology/Procedures Radiology/Procedures [] Course & Med Decision Making Course & Med Decision Making Evaluation of patient in ER showed 27-year-old female patient at 19 weeks of gestation with complaining of upper respiratory symptom. Patient was afebrile in ER and treated with Tylenol. Patient had negative stress to this and plan to discharge home with diagnosis of URI and prescription of liquid amoxicillin and Lortab because patient states she is not able to take pills by mouth because of pain. Dragon Disclaimer Dragon Disclaimer This electronic medical record was generated, in whole or in part, using a voice recognition dictation system. Departure Departure: Impression: Primary Impression: Upper respiratory infection Additional Impressions: Currently Tobacco abuse Tobacco abuse counseling Disposition: ADMITTED INPATIENT (at [id number]) Condition: IMPROVED Referrals: PCP,NO (PCP) Patient Instructions: ABCs of , Smoking Cessation, Tips For Success, Upper Respiratory Infection, Adult Additional Instructions: Drink plenty of liquids Follow-up with your primary care physician in 3-5 days Return to ER if not getting better Take [id number] Tylenol and Benadryl as needed for pain and cough Follow-up with your [employer] as needed Scripts Hydrocodone Bit/Acetaminophen (HYDROCODONE-APAP 5-217/10 SOLN) 10 Ml Solution 5 ML PO PRN Q6HRS for pain, #100 ML 0 Refills Prov: KERI TORRES MD 01/15/18 Amoxicillin (AMOXICILLIN) 250 Mg/5 Ml Susp.recon 10 ML PO Q8HRS for Infection, #210 ML Prov: KERI TORRES MD 12/9/18 Problem Qualifiers KERI TORRES MD Jan 15, 2018 08:52
== END 2018-01-15 08:55 | disposition other institution (70) ==
LOC: ER 08:15
DX: O99.511 Diseases of the respiratory system complicating pregnancy, first trimester (principal); J06.9 Acute upper respiratory infection, unspecified; O99.332 Smoking (tobacco) complicating pregnancy, second trimester; Z3A.19 19 weeks gestation of pregnancy; Z71.6 Tobacco abuse counseling; Z88.5 Allergy status to narcotic agent
CPT/HCPCS: 87070; 87880; 99285